=== PATIENT | female | born 2000 | race Caucasian/White ===

== ENCOUNTER 2023-08-27 17:03 | Emergency (ER) | payer OTHER, SELFPAY ==
[2023-08-27 17:06] VITALS: BP 131/91; PULSE 85; RESP 17; TEMP 36.5; O2SAT 98; BMI 38.1
[2023-08-27 17:52] LABS: Basophils % 0.2 %; Eosinophils # 0.2 10^3/uL (0.0-0.8); Eosinophils % 1.5 %; Hematocrit 37.6 % (36-47); Lymphocytes # 2.5 10^3/uL (0.8-4.8); Lymphocytes % 20.2 %; Mean Corpuscular HGB Conc 32.2 g/dL (30-55); Mean Corpuscular Hemoglobin 27.7 pg (27-33); Mean Platelet Volume 9.6 fL (7.4-10.4); Monocytes # 0.9 10^3/uL (0.2-0.9); Monocytes % 7.1 %; Neutrophils % 70.8 %; Nucleated Red Blood Cells % 0 %; Platelet Count 327 10^3/cmm (157-399); Red Blood Count 4.37 10^6/uL (3.85-5.65); Red Cell Distribution Width 13.2 % (12.1-15.1); White Blood Count 12.31 10^3/uL (3.29-11.43)
[2023-08-27 18:07] LABS: HCG, Serum Qual Negative (Negative)
[2023-08-27 18:13] LABS: Alanine Aminotransferase 12 U/L (0-33); Albumin Level 4.3 g/dL (3.5-5.2); Alkaline Phosphatase 46 U/L (35-105); Anion Gap 14.3 (5-19); Aspartate Amino Transferase 15 U/L (0-32); Blood Urea Nitrogen 12 mg/dL (6-20); Carbon Dioxide 25 mmol/L (22-29); Chloride 108 mmol/L (98-107); Creatinine Clr Calc Pharmacy 143.5876; Globulin 2.9 g/dL (1.3-4.6); Glomerular Filtration Rate 88.1 mL/min (90-130); Glucose 109 mg/dL (65-115); Lipase 18 U/L (13-60); Osmolality Calculated 296 mOsm/kg (285-295); Potassium 4.3 mmol/L (3.5-5.1); Sodium 143 mmol/L (136-145); Total Bilirubin 0.2 mg/dL (0.15-1.2); Total Protein 7.2 g/dL (6.6-8.7)
--- NOTE | 2023-08-27 18:41 | CTR_ITS ---
PROCEDURE INFORMATION: Exam: CT Abdomen And Pelvis Without Contrast Exam date and time: 08/27/2023 6:51 PM Age: 23 years old Clinical indication: Abdominal pain; Flank; Right; Additional info: Right flank pain radiating inguinal, n/v TECHNIQUE: Imaging protocol: Computed tomography of the abdomen and pelvis without contrast. Radiation optimization: All CT scans at this facility use at least one of these dose optimization techniques: automated exposure control; mA and/or kV adjustment per patient size (includes targeted exams where dose is matched to clinical indication); or iterative reconstruction. COMPARISON: No relevant prior studies available. RADIATION DOSE METRICS: Total DLP (mGy-cm): 906 FINDINGS: Liver: Normal. No mass. Gallbladder and bile ducts: Normal. No calcified stones. No ductal dilation. Pancreas: Normal. No ductal dilation. Spleen: Normal. No splenomegaly. Adrenal glands: Normal. No mass. Kidneys and ureters: There is an obstructing 5 mm stone in the proximal right ureter with upstream hydroureter and mild hydronephrosis. There is a nonobstructing 3 mm stone in the left kidney. No hydronephrosis or hydroureter. Stomach and bowel: Unremarkable. No obstruction. No mucosal thickening. Appendix: No evidence of appendicitis. Intraperitoneal space: Unremarkable. No free air. No significant fluid collection. Vasculature: Unremarkable. No abdominal aortic aneurysm. Lymph nodes: Unremarkable. No enlarged lymph nodes. Urinary bladder: Unremarkable as visualized. Reproductive: Unremarkable as visualized. 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 Soft tissues: Unremarkable. CT/CT kidney stone [id number] IMPRESSION: There is an obstructing 5 mm stone in the proximal right ureter with upstream hydroureter and mild hydronephrosis.
--- NOTE | 2023-08-27 18:43 | ED_ITS ---
HPI - Abdominal Pain 2 General: Chief Complaint: Abdominal Pain Stated Complaint: rt lower abd pain Time Seen by Provider: 08/27/23 18:41 History of Present Illness: 23-year-old female had significant right flank pain radiating to the groin starting this evening about 4:00. Patient did report an episode of nausea and vomiting. Patient appears in moderate pain. Patient appears nontoxic. Patient denies any chronic medical problems. Review of Systems 2 General: Reports: 10 or more systems reviewed and unremarkable except in HPI and below : Reports: flank pain Physical Exam 2 Const: COMMON NORMALS: alert HENMT: COMMON NORMALS: normocephalic HEAD & SCALP: normocephalic Neck/C-Spine: COMMON NORMALS: full ROM Resp: COMMON NORMALS: normal respiratory effort Cardio: COMMON NORMALS: regular rate RATE: regular rate GI: COMMON NORMALS: Soft to palpation PALPATION: Yes Soft to palpation and Yes Tenderness to palpation present (GI) Details: RUQ : BLADDER/KIDNEY EXAM: Yes CVA tenderness on the right Back/Pelvis: GENERAL BACK: Yes CVA tenderness Extremity: COMMON NORMALS: normal to inspection Neuro: SENSORIUM/ORIENTATION: Yes alert Skin: COMMON NORMALS: turgor normal GENERAL SKIN EXAM: turgor normal Course 2 Vital Signs: Vital signs: Vital Signs Temperature 97.7 F 08/27/23 17:06 Pulse Rate 85 08/27/23 17:06 Respiratory Rate 16 08/27/23 19:07 Blood Pressure 131/91 08/27/23 17:06 Pulse Oximetry 98 08/27/23 19:07 Oxygen Delivery Me thod Room Air 08/27/23 17:06 MDM - Abdominal Pain Medical Decision Making 23-year-old female comes in today for complaints of right flank pain radiating to the groin. Patient appears nontoxic. Respirations are even lungs clear to auscultation. Abdomen soft with some right upper quadrant abdominal tenderness. Differential diagnosis includes but not limited to gallbladder colic, renal colic, pancreatitis, cholecystitis, appendicitis, urinary tract infection. CT of the abdomen pelvis noted a 5 mm renal stone in the upper right ureter. CBC and CMP were unremarkable except for some mild elevation in white blood cells at 12,000. Reviewed exam with patient recommended treatment for a renal calculi. Recommended follow-up with urologist for further treatment. Patient reports understanding of care plan and need for follow-up or return to the ER. Lab Data 08/27/23 17:35 08/27/23 17:35 Labs/Radiology: Radiology Impressions Abdomen/Pelvis CT 08/27/23 18:41 IMPRESSION: There is an obstructing 5 mm stone in the proximal right ureter with upstream hydroureter and mild hydronephrosis. Laboratory Results WBC 12.31 10^3/uL (3.29-11.43) H 08/27/23 17:35 RBC 4.37 10^6/uL (3.85-5.65) 08/27/23 17:35 Hgb 12.10 g/dL (11.27-16.99) 08/27/23 17:35 Hct 37.6 % (36-47) 08/27/23 17:35 MCV 86.0 fl (85-98) 08/27/23 17:35 MCH 27.7 pg (27-33) 08/27/23 17:35 MCHC 32.2 g/dL (30-55) 08/27/23 17:35 RDW 13.2 % (12.1-15.1) 08/27/23 17:35 Plt Count 327 10^3/cmm (157-399) 08/27/23 17:35 MPV 9.6 fL (7.4-10.4) 08/27/23 17:35 Neut % (Auto) 70.8 % 08/27/23 17:35 Lymph % (Auto) 20.2 % 08/27/23 17:35 [place] % (Auto) 7.1 % 08/27/23 17:35 Eos % (Auto) 1.5 % 08/27/23 17:35 Baso % (Auto) 0.2 % 08/27/23 17:35 Neut # (Auto) 8.70 10^3/uL (1.8-7.7) H 08/27/23 17:35 Lymph # (Auto) 2.5 10^3/uL (0.8-4.8) 08/27/23 17:35 [place] # (Auto) 0.9 10^3/uL (0.2-0.9) 08/27/23 17:35 Eos # (Auto) 0.2 10^3/uL (0.0-0.8) 08/27/23 17:35 Baso # (Auto) 0.0 10^3/uL (0.0-0.1) 08/27/23 17:35 Nucleated RBC % (auto) 0 % 08/27/23 17:35 Nucleated RBCs # 0.0 /100WBC 08/27/23 17:35 Sodium 143 mmol/L (136-145) 08/27/23 17:35 Potassium 4.3 mmol/L (3.5-5.1) 08/27/23 17:35 Chloride 108 mmol/L (98-107) H 08/27/23 17:35 Carbon Dioxide 25 mmol/L (22-29) 08/27/23 17:35 Anion Gap 14.3 (5-19) 08/27/23 17:35 BUN 12 mg/dL (6-20) 08/27/23 17:35 Creatinine 0.8 mg/dL (0.5-0.9) 08/27/23 17:35 GFR Calculation 88.1 mL/min (90-130) L 08/27/23 17:35 Glucose 109 mg/dL (65-115) 08/27/23 17:35 Calculated Osmolality 296 mOsm/kg (285-295) H 08/27/23 17:35 Calcium 9.0 mg/dL (8.5-10.5) 08/27/23 17:35 Total Bilirubin 0.2 mg/dL (0.15-1.2) 08/27/23 17:35 AST 15 U/L (0-32) 08/27/23 17:35 ALT 12 U/L (0-33) 08/27/23 17:35 Alkaline Phosphatase 46 U/L (35-105) 08/27/23 17:35 Total Protein 7.2 g/dL (6.6-8.7) 08/27/23 17:35 Albumin 4.3 g/dL (3.5-5.2) 08/27/23 17:35 Globulin 2.9 g/dL (1.3-4.6) 08/27/23 17:35 Lipase 18 U/L (13-60) 08/27/23 17:35 HCG, Qual Negative (Negative) 08/27/23 17:35 All radiology interpretation(s) finalized by discharge Discharge Plan Discharge Patient Disposition: Home Clinical Impression: Ureteral calculus Condition: Stable Prescriptions: New tamsulosin 0.4 mg capsule 0.4 mg PO DAILY Qty: 14 0RF ketorolac 10 mg tablet 10 mg PO Q6H PRN (Reason: kidney stone pain) 5 Days Qty: 12 0RF hydrocodone-acetaminophen 5-325 mg tablet 1 tab PO Q8H PRN (Reason: pain (scale score 7-10)) Qty: 7 0RF ondansetron 4 mg tablet,disintegrating 4 mg PO Q8H PRN (Reason: nausea and vomiting) Qty: 10 0RF Discharge Orders: Discharge ED (Routine); Ordered 08/27/23 Ordered By: Arnaud Mcfarland Referrals: Samantha Zimmer, [employer]S ANALYST-[employer] [Primary Care Provider] - Discharge Diet: Usual diet Discharge Activity: Increase activity as tolerated Patient Instructions: Kidney Stones (ED) Activity Restrictions/Additional Instructions: activity as tolerated. medications as directed. Follow-up with urologist for further care. Return to ER for high fever, or new concerns. 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
[2023-08-27] MEDS: sodium chloride 0.9% 500 ML 999 ML IV (19:04)
[2023-08-27 19:07] VITALS: RESP 16; O2SAT 98
[2023-08-27] MEDS: ketorolac 30 mg/mL INJ 15 MG IVP (19:07)
[2023-08-27] MEDS: fentaNYL 50 mcg/mL INJ 2mL IVP (19:07)
[2023-08-27] MEDS: ondansetron 2 mg/ML SDV 2 mL 4 MG IVP (19:08)
[2023-08-27 19:11] VITALS: BP 121/88; PULSE 88; RESP 18; O2SAT 97
[2023-08-27 19:39] VITALS: BP 120/79; PULSE 68; RESP 12; O2SAT 98
[2023-08-27] MEDS: tamsulosin 0.4 mg Capsule 0.400000000000000022 MG PO (19:47)
[2023-08-27 19:49] LABS: Add Urine Microscopic? YES; Amorphous Sediment Urine 1+ /hpf; Bacteria Urine 2+ /hpf; Bilirubin Urine Neg (Negative); Blood Urine 3+ (Negative); Glucose Urine UA Norm (Normal); Ketones Urine 1+ (Negative); Leukocyte Esterase Urine 1+ (Negative); Mucus Urine 2+ /hpf; Nitrate Urine Negative (Negative); Protein Urine Trace (Negative); RBC Urine 15-25 /hpf (0-2); Squamous Epithelial Cell Urine 15-25 /hpf (0-5); Urine Appearance Hazy (CLEAR); Urine Color Yellow (Yellow); Urobilinogen Urine Neg (Negative); pH Urine 5 (5-7)
[2023-08-27 20:01] VITALS: BP 123/80; PULSE 75; RESP 14; O2SAT 99
--- NOTE | 2023-08-30 10:26 | PC.SOCIAL ---
Urology Referral Attempted to make contact with patient regarding urology referral; unable to reach. Voicemail left requesting call back.
== END 2023-08-27 20:04 | disposition home or self-care (01) ==
PROVIDERS: Emergency Medicine; Emergency Provider Nurse Practitioner Family; PCP Nurse Practitioner
DX: N13.2 Hydronephrosis with renal and ureteral calculous obstruction (principal)
CPT/HCPCS: 36415; 74176; 80053; 81001; 83690; 84703; 85025; 96361; 96374; 96375; 99285; J1885; J2405; J3010; J7040